=== PATIENT | male | born 1985 | race Asian ===

== ENCOUNTER 2022-10-24 19:41 | Emergency (ER) | payer MEDICAID ==
[~2022-10-24] VITALS: Ht 172.7 cm; Wt 77.1 kg
[2022-10-24 19:42] VITALS: BP 130/84
--- NOTE | 2022-10-24 19:42 | NUR ---
rosalie to chair c
--- NOTE | 2022-10-24 19:56 | NUR ---
Patient being evaluated by physician
--- NOTE | 2022-10-24 20:10 | NUR ---
SPOKE WITH FATHER, SAID MARÍA ELENA [phone] WILL PICK SON UP. OK TO DC PER DR. CANTU
[2022-10-24 20:16] VITALS: BP 130/84
--- NOTE | 2022-10-24 20:16 | NUR ---
Patient discharged with v/s stable. Written and verbal after care instructions given and explained. Patient verbalized understanding. Ambulatory with steady gait. All questions addressed prior to discharge. Advised to follow up with PMD.
== END 2022-10-24 20:16 | disposition home or self-care (01) ==
LOC: MED 19:41
DX: F15.90 Other stimulant use, unspecified, uncomplicated (principal); T40.411A Poisoning by fentanyl or fentanyl analogs, accidental (unintentional), initial encounter; F17.200 Nicotine dependence, unspecified, uncomplicated; Z72.89 Other problems related to lifestyle; Y92.89 Other specified places as the place of occurrence of the external cause
CPT/HCPCS: 99283